=== PATIENT | female | born 1990 | race American Indian/Alaskan Native ===

== ENCOUNTER 2019-06-06 20:14 | Emergency (ER) | payer SELFPAY ==
[2019-06-06 20:33] VITALS: BP 122/78
--- NOTE | 2019-06-06 20:59 | Emergency Department Report ---
Blank Doc - Documentation Documentation: 28-year-old female that presents with lower back pain and right ankle pain s/p fall. Denies any LOC or any other trauma/complaints. This initial assessment/diagnostic orders/clinical plan/treatment(s) is/are subject to change based on patient's health status, clinical progression and re- assessment by fellow clinical providers in the ED. Further treatment and workup at subsequent clinical providers discretion. Patient/guardians urged not to elope from the ED as their condition may be serious if not clinically assessed and managed. Initial orders include: 1- Patient sent to [facility] for further evaluation and treatment 2- xrays
--- NOTE | 2019-06-06 22:00 | XRay Report ---
LUMBAR SPINE HISTORY: Pain status post fall COMPARISON: None. TECHNIQUE: 2 view(s) of the lumbar spine obtained. FINDINGS: Vertebrae: Normal alignment. Mild irregularity along the anterior aspects of the L2 and L3 superior e ndplates is favored degenerative in nature. Vertebral body heights are maintained. Disc Spaces:No significant abnormality. Facet Joints:No significant abnormality. Additional findings: None. IMPRESSION: 1. Mild irregularity along the anterior superior endplates of L2 and L3 is favored degenerative in n ature. However, if there is clinical concern for fracture, CT could be performed. Signer Name: Melba No MD Signed: 06/06/2019 9:55 PM Workstation Name: [id number]
--- NOTE | 2019-06-06 22:03 | XRay Report ---
XR RIGHT ANKLE 3 VIEWS INDICATION / CLINICAL INFORMATION: pain s/p fall COMPARISON: None available. FINDINGS: BONES / JOINT(S): No acute displaced fracture identified. Ankle mortise is suboptimally evaluated on these projections, without evidence for obvious dislocation. SOFT TISSUES: Mild soft tissue swelling about the ankle. ADDITIONAL FINDINGS: None. Signer Name: Melba No MD Signed: 06/06/2019 9:59 PM Workstation Name: [id number]
[2019-06-07] MEDS ORDERED: HYDROcodone/ACETAMINOPHEN 5-325 MG TAB PO ONE (00:28)
--- NOTE | 2019-06-07 01:48 | Emergency Department Report ---
ED Lower Extremity HPI - General Chief Complaint: Fall Stated Complaint: FELL DOWN STEPS BACK PAIN AND RIGHT ANKLE Time Seen by Provider: 06/06/19 20:58 Source: patient Mode of arrival: Ambulatory Limitations: No Limitations - Related Data Previous Rx's Medication Instructions Recorded Last Taken Type Cyclobenzaprine [Flexeril] 10 mg PO TID PRN #30 tablet 06/07/19 Unknown Rx Naproxen 500 mg PO BID PRN #30 tablet 06/07/19 Unknown Rx traMADoL [Ultram] 50 mg PO Q6HR PRN #12 tablet 06/07/19 Unknown Rx Allergies Allergy/AdvReac Type Severity Reaction Status Date / Time No Known Allergies Allergy Unverified 06/06/19 21:01 ED Review of Systems ROS: Stated complaint: FELL DOWN STEPS BACK PAIN AND RIGHT ANKLE Other details as noted in HPI ED Past Medical Hx - Past Medical History Previous Medical History?: Yes Hx Asthma: Yes - Surgical History Past Surgical History?: No - Social History Smoking Status: Current Every Day Smoker - Medications Home Medications: Home Medications Medication Instructions Recorded Confirmed Last Taken Type Cyclobenzaprine [Flexeril] 10 mg PO TID PRN #30 tablet 06/07/19 Unknown Rx Naproxen 500 mg PO BID PRN #30 tablet 06/07/19 Unknown Rx traMADoL [Ultram] 50 mg PO Q6HR PRN #12 tablet 06/07/19 Unknown Rx ED Physical Exam - General Limitations: No Limitations ED Course Vital Signs 06/06/19 20:20 Temperature 98.3 F Pulse Rate 122 H Respiratory 20 Rate Blood Pressure 122/78 O2 Sat by Pulse 97 Oximetry Critical care attestation.: If time is entered above; I have spent that time in minutes in the direct care of this critically ill patient, excluding procedure time. ED Disposition Clinical Impression: Back strain Qualifiers: Encounter type: initial encounter Qualified Code(s): S39.012A - Strain of muscle, fascia and tendon of lower back, initial encounter Right ankle sprain Qualifiers: Encounter type: initial encounter Involved ligament of ankle: calcaneofibular ligament Qualified Code(s): S93.411A - Sprain of calcaneofibular ligament of right ankle, initial encounter Disposition: TO HOME OR SELFCARE Is pt being admited?: No Does the pt Need Aspirin: No Condition: Stable Instructions: Muscle Strain (ED), Ankle Exercises (GEN) Prescriptions: Cyclobenzaprine [Flexeril] 10 mg PO TID PRN #30 tablet PRN Reason: Muscle Spasm Naproxen 500 mg PO BID PRN #30 tablet PRN Reason: pain traMADoL [Ultram] 50 mg PO Q6HR PRN #12 tablet PRN Reason: Pain Referrals: PRIMARY CARE,MD [Primary Care Provider] - 3-5 Days
--- NOTE | 2019-06-07 02:22 | Emergency Department Report ---
ED Lower Extremity HPI - General Chief Complaint: Fall Stated Complaint: FELL DOWN STEPS BACK PAIN AND RIGHT ANKLE Time Seen by Provider: 06/06/19 20:58 Source: patient Mode of arrival: Ambulatory Limitations: No Limitations - History of Present Illness Initial Comments: Miscarriages at 28-year-old primary female who presents for right ankle pain. States she fell down 6 steps now with low back and right ankle pain. Patient states she is not able to walk on ankle. States ankle is primary concern. Low- back pain is 4/10 and aching throbbing since fall last night. There was no LOC patient was immediately ambulatory however pain got progressively worse so she came to ED. MD Complaint: ankle injury Onset/Timin -: hour(s) Injury: Ankle: Right Type of Injury: hyperextension, hyperflexion, unknown Place: home Severity: moderate Severity scale (0 -10): 7 Worsens With: weight bearing Context: fall Associated Symptoms: numbness, tingling, able to partially bear weight - Related Data Previous Rx's Medication Instructions Recorded Last Taken Type Cyclobenzaprine [Flexeril] 10 mg PO TID PRN #30 tablet 06/07/19 Unknown Rx Naproxen 500 mg PO BID PRN #30 tablet 06/07/19 Unknown Rx traMADoL [Ultram] 50 mg PO Q6HR PRN #12 tablet 06/07/19 Unknown Rx Allergies Allergy/AdvReac Type Severity Reaction Status Date / Time No Known Allergies Allergy Unverified 06/06/19 21:01 ED Review of Systems ROS: Stated complaint: FELL DOWN STEPS BACK PAIN AND RIGHT ANKLE Other details as noted in HPI Constitutional: denies: chills, fever Eyes: denies: eye pain, eye discharge, vision change ENT: denies: ear pain, throat pain Respiratory: denies: cough, shortness of breath, wheezing Cardiovascular: denies: chest pain, palpitations Endocrine: no symptoms reported Gastrointestinal: denies: abdominal pain, nausea, diarrhea Genitourinary: denies: urgency, dysuria, discharge Musculoskeletal: back pain Skin: denies: rash, lesions Neurological: as per HPI Psychiatric: denies: anxiety, depression Hematological/Lymphatic: denies: easy bleeding, easy bruising ED Past Medical Hx - Past Medical History Previous Medical History?: Yes Hx Asthma: Yes - Surgical History Past Surgical History?: No - Social History Smoking Status: Current Every Day Smoker - Medications Home Medications: Home Medications Medication Instructions Recorded Confirmed Last Taken Type Cyclobenzaprine [Flexeril] 10 mg PO TID PRN #30 tablet 06/07/19 Unknown Rx Naproxen 500 mg PO BID PRN #30 tablet 06/07/19 Unknown Rx traMADoL [Ultram] 50 mg PO Q6HR PRN #12 tablet 06/07/19 Unknown Rx ED Physical Exam - General Limitations: No Limitations General appearance: alert, in no apparent distress - Head Head exam: Present: atraumatic, normocephalic - Eye Eye exam: Present: normal appearance - ENT ENT exam: Present: mucous membranes moist - Neck Neck exam: Present: normal inspection - Respiratory Respiratory exam: Present: normal lung sounds bilaterally. Absent: respiratory distress - Cardiovascular Cardiovascular Exam: Present: regular rate, normal rhythm. Absent: systolic murmur, diastolic murmur, rubs, gallop - GI/Abdominal GI/Abdominal exam: Present: soft, normal bowel sounds - Extremities Exam Extremities exam: Present: normal inspection - Back Exam Back exam: Present: normal inspection - Neurological Exam Neurological exam: Present: alert, oriented X3, CN II-XII intact, motor sensory deficit, reflexes normal - Psychiatric Psychiatric exam: Present: normal affect, normal mood - Skin Skin exam: Present: warm, dry, intact, normal color. Absent: rash ED Course Vital Signs 06/06/19 20:20 Temperature 98.3 F Pulse Rate 122 H Respiratory 20 Rate Blood Pressure 122/78 O2 Sat by Pulse 97 Oximetry ED Lower Extremity MDM - Radiology Data Radiology results: report reviewed, image reviewed Ordering Physician: ROBBY WILD NP Date of Service: 06/06/19 Procedure(s): XR spine lumbosacral 2-3V Accession Number(s): [id number] cc: ROBBY WILD NP Fluoro Time In Minutes: LUMBAR SPINE HISTORY: Pain status post fall COMPARISON: None. TECHNIQUE: 2 view(s) of the lumbar spine obtained. FINDINGS: Vertebrae: Normal alignment. Mild irregularity along the anterior aspects of the L2 and L3 superior endplates is favored degenerative in nature. Vertebral body heights are maintained. Disc Spaces:No significant abnormality. Facet Joints:No significant abnormality. Additional findings: None. IMPRESSION: 1. Mild irregularity along the anterior superior endplates of L2 and L3 is favored degenerative in nature. However, if there is clinical concern for fracture, CT could be performed. Signer Name: Melba No MD Signed: 06/06/2019 9:55 PM Workstation Name: [id number] Transcribed By: [facility] Dictated By: Melba No MD Electronically Authenticated By: Melba No MD Signed Date/Time: 06/06/192154 DD/ 50 TD/TT: Ordering Physician: ROBBY WILD NP Date of Service: 06/06/19 Procedure(s): XR ankle 3+V RT Accession Number(s): [id number] cc: ROBBY WILD NP Fluoro Time In Minutes: XR RIGHT ANKLE 3 VIEWS INDICATION / CLINICAL INFORMATION: pain s/p fall COMPARISON: None available. FINDINGS: BONES / JOINT(S): No acute displaced fracture identified. Ankle mortise is suboptimally evaluated on these projections, without evidence for obvious dislocation. SOFT TISSUES: Mild soft tissue swelling about the ankle. ADDITIONAL FINDINGS: None. Signer Name: Melba No MD Signed: 06/06/2019 9:59 PM Workstation Name: [id number] Transcribed By: [facility] Dictated By: Melba No MD Electronically Authenticated By: Melba No MD Signed Date/Time: 06/06/192158 DD/ 54 TD/TT: - Medical Decision Making this is an ankles sprain with low back strain , no posterior vertebral point tenderness, pt will follow up with orthopedics in 2-3 days, acewrap ankle crutches, nsaids, prn pain, pt advises pain is improved at this time to 2/10. Critical care attestation.: If time is entered above; I have spent that time in minutes in the direct care of this critically ill patient, excluding procedure time. ED Disposition Disposition: [id number] TO HOME OR SELFCARE Condition: Stable Instructions: Muscle Strain (ED), Ankle Exercises (GEN) Prescriptions: Cyclobenzaprine [Flexeril] 10 mg PO TID PRN #30 tablet PRN Reason: Muscle Spasm Naproxen 500 mg PO BID PRN #30 tablet PRN Reason: pain traMADoL [Ultram] 50 mg PO Q6HR PRN #12 tablet PRN Reason: Pain Referrals: PRIMARY CARE, [Primary Care Provider] - 3-5 Days
== END 2019-06-07 02:20 | disposition home or self-care (01) ==
LOC: ED 20:14
DX: S39.012A Strain of muscle, fascia and tendon of lower back, initial encounter (principal); S93.401A Sprain of unspecified ligament of right ankle, initial encounter; J45.909 Unspecified asthma, uncomplicated; F17.200 Nicotine dependence, unspecified, uncomplicated; Z79.899 Other long term (current) drug therapy; W10.9XXA Fall (on) (from) unspecified stairs and steps, initial encounter; Y93.89 Activity, other specified; Y92.89 Other specified places as the place of occurrence of the external cause; Y99.8 Other external cause status
CPT/HCPCS: 72100